=== PATIENT | female | born 1975 | race Caucasian/White ===

== ENCOUNTER 2024-12-12 07:50 | Emergency (ER) | payer SELFPAY ==
[~2024-12-12] VITALS: Ht 167.6 cm; Wt 65.0 kg
[2024-12-12] MEDS ORDERED: OMEPRAZOLE20 MG PO (08:13)
[2024-12-12] MEDS ORDERED: LORazepam 1 MG TAB PO ONE (08:30)
[2024-12-12] MEDS ORDERED: ONDANSETRON 4 MG TAB ODT SL ONE (08:30)
[2024-12-12] MEDS ORDERED: ZYRTEC10 MG PO (08:42)
[2024-12-12 08:46] LABS: CORONAVIRUS COVID-19 AG NEGATIVE (NEGATIVE); INFLUENZA A AG NEGATIVE (NEGATIVE); INFLUENZA B AG NEGATIVE (NEGATIVE)
[2024-12-12 09:47] VITALS: BP 141/83
[2024-12-14] MEDS ORDERED: ONDANSETRON HCL4 MG PO (10:46)
== END 2024-12-12 09:45 | disposition home or self-care (01) ==
LOC: ED 07:50
PROVIDERS: Emergency Medicine
DX: J06.9 Acute upper respiratory infection, unspecified (principal); Z88.8 Allergy status to other drugs, medicaments and biological substances; Z88.1 Allergy status to other antibiotic agents; Z79.899 Other long term (current) drug therapy
CPT/HCPCS: 36415; 99284; A9270; A9270-GY